=== PATIENT | female | born 1970 | race Caucasian/White ===

== ENCOUNTER 2018-11-11 15:07 | Inpatient (IN) ==
[2018-11-11] MEDS ORDERED: ALBUTEROL SULFATE/IPRATROPIUM 3 ML NEBU IH ONE ×2 (15:17→15:47)
[2018-11-11] MEDS ORDERED: METHYLPREDNISOLONE SOD SUCC/PF 125 MG/2 ML VIAL IV ONE (15:31)
--- NOTE | 2018-11-11 15:35 | ERNOTE ---
Dyspnea - General Presenting Symptoms: difficulty of breathing, wheezing Time Seen by Provider: 11/11/18 15:15 Source: patient Exam Limitations: no limitations - Immun/Allergies/Home Medications Allergies/Adverse Reactions: Allergies latex Allergy (Verified 11/11/18 16:01) RASH aspirin Adverse Reaction (Verified 11/11/18 16:01) Swelling of Face nausea fentanyl Adverse Reaction (Verified 11/11/18 16:01) Swelling of Tongue vomiting Home Medications: HOME MEDICATIONS amoxicillin 875 mg-potassium clavulanate 125 mg tablet 1 tab PO BID 7 Days #14 tab 11/09/18 [Last Taken Unknown] benzonatate 100 mg capsule 100 mg PO TID 10 Days #30 cap 11/09/18 [Last Taken Unknown] fluticasone propionate 50 mcg/actuation nasal spray,suspension 2 spray JUSTIN DAILY 10 Days #9.9 g 11/09/18 [Last Taken Unknown] - History of Present Illness Narrative: Patient is currently being treated for sinus infection and is on Augmentin and Tessalon Perles. However approximately 1 to 2 hours ago she got significantly short of breath with wheezing and a cough. She rates his symptoms as at least moderate to severe in severity. Severity: moderate, severe Treatment CARDIO CLINICIAN: none Initiating event: Reports: other - sinusitis Frequency of episodes: Reports: occassional episodes Modifying Factors - (Improves): Reports: nothing Modifying Factors (Worsens): Reports: other - smoking Associated Symptoms-Dyspnea: Reports: cough, wheezing Prior Treatment: Reports: recently seen, treated by physician, currently on antibiotics Review of Systems - Review of Systems Constitutional: Present: See HPI EYE: Present: no symptoms reported ENT: Present: no symptoms reported Respiratory: Present: See HPI Cardiology: Present: no symptoms reported Gastrointestinal/Abdominal: Present: no symptoms reported Genitourinary: Present: no symptoms reported Musculoskeletal: Present: no symptoms reported Skin: Present: no symptoms reported Neurological: Present: no symptoms reported Endocrine: Present: no symptoms reported Hematologic/Lymphatic: Present: no symptoms reported Psych: Present: no symptoms reported Medical History (Updated 11/09/18 @ 15:38 by Lida Cano CMA) Sinusitis Onset Date: Unknown Anxiety Onset Date: Unknown Depression Onset Date: Unknown Environmental allergies Onset Date: Unknown Surgical History: Surgical History (Updated 11/09/18 @ 15:40 by Lida Cano CMA) H/O: hysterectomy Onset Date: Unknown History of breast surgery Onset Date: Unknown History of tubal ligation Onset Date: Unknown Previous section Onset Date: Unknown Family History: Family History (Updated 11/09/18 @ 15:40 by Lida Cano CMA) Other No pertinent family history Social History: (Last Reviewed 11/11/18 @ 16:01 by Giana Bell RN) Social History: usp: No Marital status: Single current occupational status: unemployed Highest education level completed: high school graduate Service: No Tobacco: Smoking Status: Current every day smoker Alcohol: alcohol intake: current alcohol intake frequency: a few times a month Substance Use: substance use type: does not use Dietary Habits: caffeine: Yes Physical Exam - Physical Exam General Appearance: Present: wd/wn, alert, moderate distress Head Exam: Present: normal inspection, no evidence of injury Eye Exam: Normal inspection: bilateral, PERRL: bilateral Ears, Nose, Throat: Present: normal ENT inspection, H, normal pharynx Neck: Present: normal inspection, nontender Respiratory: Present: no accessory muscle use, chest nontender, wheezing, other - Coarse breath sounds heard throughout Cardiovascular/Chest: Present: regular rate, rhythm, no murmur, normal peripheral pulses Gastrointestinal/Abdominal: Present: normal bowel sounds, nontender, nondis tended, soft, no organomegaly Rectal Exam: Present: deferred Back Exam: Present: normal inspection, normal range of motion Extremity Exam: Present: normal inspection, non-tender, no edema, normal range of motion Neurological Exam: Present: alert, oriented, normal mood/affect Skin Exam: Present: normal color, warm/dry Lymphatic Exam: Present: no adenopathy Progress - Results and Orders Patient's Lab Results:: I have reviewed the patient's lab results. - Vital Signs Patient's Vital Signs:: I have reviewed the patient's vital signs. Vital Signs: Vital Signs 11/11/18 15:08 Temperature 36.3 C Pulse Rate 95 Respiratory Rate 32 H Blood Pressure 90/69 O2 Sat by Pulse Oximetry 96 - X-Ray X-Ray #1 X-Ray: chest Interpretation: Reviewed by me - Progress/Reassessment Chief Complaint: Dyspnea Plan - Plan Plan: Patient will need to be admitted for stabilization of the blood pressure, 2 sep arate antibiotics to treat what is likely interstitial pneumonia with acute bronchospasm. Patient is worrisome for evolving sepsis so I believe aggressive treatment is mandated here. Departure Clinical Impression: Interstitial pneumonia Hypotension Qualifiers: Hypotension type: other hypotension type Qualified Code(s): I95.89 - Other hypotension Sepsis Qualifiers: Sepsis type: sepsis due to unspecified organism Sepsis acute organ dysfunction status: without acute organ dysfunction Qualified Code(s): A41.9 - Sepsis, unspecified organism - Departure Disposition: Still a patient Condition: Critical Critical Care Note - Critical Care Note Total Time (mins): 50 Comments: Patient is very worrisome for an evolving sepsis. In light of the elevated lactate and a hypotensive episode that required a liter fluid to stabilize, patient will be admitted. He required 1 L fluid to stabilize the blood pressure from 70/40 to 100/60. Patient will be started on 2 separate antibiotics, Rocephin and Zithromax as I suspect this is all coming from interstitial pneumonia.
[2018-11-11 15:42] LABS: Hematocrit 43.2 % (37.0-47.0); Mean Cell Volume 91.5 fl (78-100); Mean Corpuscular Hemoglobin 31.8 pg (27-31); Mean Corpuscular Hgb Conc 34.7 g/dl (32-36); Mean Platelet Volume 9.8 fl (8-12.5); Neutrophil # 3.9 K/mm3 (1.3-6.0); Neutrophil % 61.9 % (42-75.0); Platelet Count 364 K/mm3 (150-450); Red Blood Count 4.72 M/mm3 (4.2-5.4); Red Cell Distribution Width 13.4 % (11.5-14.0); White Blood Count 6.3 K/mm3 (4.0-10.5)
[2018-11-11] MEDS ORDERED: NORMAL SALINE 1,000 ML IV ONE ×3 (15:45→16:52)
[2018-11-11 15:55] LABS: Albumin * 4.2 gm/dl (3.4-5.0); Anion Gap 20.4 mmol/L (6.8-13.8); BUN/Creatinine Ratio 6.9 (9.0-21.6); Bilirubin, Total 0.5 mg/dL (0.0-1.1); Ca. Corrected For Albumin 9.2 mg/dL (8.4-10.2); Calcium * 9.7 mg/dL (7.9-10.9); Carbon Dioxide 19.3 mmol/L (24-32.6); Potassium 3.7 mmol/L (3.4-4.6); Total Protein 7.9 gm/dL (6.2-8.2)
[2018-11-11 16:10] LABS: Troponin I Less than 0.017 ng/mL (0.00-0.10)
[2018-11-11] MEDS ORDERED: ALBUTEROL SULFATE 2.5 MG/0.5 ML VIAL.NEB IH ONE (16:11)
[2018-11-11 16:14] LABS: BNP * 79 pg/mL (5-150)
[2018-11-11] MEDS ORDERED: cefTRIAXone SODIUM 1,000 MG/100 ML BAG IV ONE (16:52)
[2018-11-11] MEDS ORDERED: AZITHROMYCIN 500 MG in DEXTROSE 5 % IN WATER 250 ML IV ONE ×2 (17:15)
--- NOTE | 2018-11-11 20:23 | HP ---
Chief Complaint - Chief Complaint Date of Service: 11/11/18 Time of Service: 18:30 Chief Complaint: cough, dyspnea, mild hypoxiemia. History of Present Illness: Justyna Maravilla is a 48-year-old female who presented to the emergency room because of shortness of breath and coughing. She has been afebrile and the cough is been minimally productive. She is a long-term smoker and smokes about 1 pack/day. Onset of her illness was 2 days ago. She was seen in the walk-in clinic and started on Augmentin. The ER chest x-ray suggests an interstitial atypical pneumonia. The CBC is a normal white count. The lactic acid is elevated at 3.4. I was notified of that by phone this afternoon. She is getting IV normal saline at 125 cc/h. She had 2 L bolus in the emergency room. She is on Rocephin and azithromycin for antibiotics. She is admitted to regular hospital stay from the emergency room. Medical History (Updated 11/11/18 @ 17:04 by Taiwo Cash DO) Sinusitis Onset Date: Unknown Anxiety Onset Date: Unknown Depression Onset Date: Unknown Environmental allergies Onset Date: Unknown Surgical History: Surgical History (Updated 11/09/18 @ 15:40 by Lida Cano CMA) H/O: hysterectomy Onset Date: Unknown History of breast surgery Onset Date: Unknown History of tubal ligation Onset Date: Unknown Previous section Onset Date: Unknown Family History: Family History (Updated 11/09/18 @ 15:40 by Lida Cano CMA) Other No pertinent family history Social History: (Last Updated 11/11/18 @ 17:33 by Lisa Castro RN) Social History: detention: No Marital status: Single current occupational status: unemployed Highest education level completed: high school graduate Service: No Tobacco: Smoking Status: Current every day smoker Smoking cigarettes per day: 20 Smoking packs per day: 1 quit status: considering quitting Alcohol: alcohol intake: current alcohol intake frequency: a few times a month Substance Use: substance use type: does not use Dietary Habits: caffeine: Yes Review Of Systems (GEN) - Review of Systems Generalized/Overall Review: Present: Weakness, Malaise, Fatigue. Absent: Chills, Fever EENTM: Present: No Symptoms Reported Respiratory: Present: Cough, Shortness of Breath. Absent: Wheezing Cardiac: Present: No Symptoms Reported Abdominal: Present: No Symptoms Reported Genitourinary: Present: No Symptoms Reported Musculoskeletal: Present: No Symptoms Reported Neurological: Present: No Symptoms Reported Skin: Present: No Symptoms Reported Endocrine: Present: No Symptoms Reported Misc: All systems neg except as marked Allergies/Adverse Reactions: Allergies Allergy/AdvReac Type Severity Reaction Status Date / Time latex Allergy RASH Verified 11/11/18 17:33 aspirin AdvReac Swelling Verified 11/11/18 17:33 of Face fentanyl AdvReac Swelling Verified 11/11/18 17:33 of Tongue Home Medications: HOME MEDICATIONS amoxicillin 875 mg-potassium clavulanate 125 mg tablet 1 tab PO BID 7 Days #14 tab 11/09/18 [Last Taken Unknown] benzonatate 100 mg capsule 100 mg PO TID 10 Days #30 cap 11/09/18 [Last Taken Unknown] fluticasone propionate 50 mcg/actuation nasal spray,suspension 2 spray JUSTIN DAILY 10 Days #9.9 g 11/09/18 [Last Taken Unknown] Exam - Exam Vital Signs: Vital Signs - Last Taken Temp 36.4 C 11/11/18 17:35 Pulse 63 11/11/18 17:38 Resp 22 H 11/11/18 17:35 BP 105/65 11/11/18 17:35 Pulse Ox 95 11/11/18 17:35 Constitutional: Present: Alert, Oriented x3, Cooperative, Well developed, Well nourished, Mild distress, Middle aged ENT Exam: Present: normal ENT inspection, hearing grossly normal, pharynx normal Eye Exam: bilateral eye: normal inspection, PERRL, EOMI Neck: Present: non-tender, full range of motion, supple, normal inspection, trachea midline Back Exam: Present: normal inspection, no CVA tenderness, no vertebral tenderness Breasts: Present: Exam deferred Respiratory: Present: chest non-tender, no accessory muscle use, decreased breath sounds, accessory muscle use, rhonchi, expiration (prolonged) Cardiovascular/Chest: Present: normal peripheral pulses, regular rate, rhythm, no chest tenderness, no edema, no gallop, no JVD, no murmur, no rub, JVD Peripheral Pulses: carotid (R): 2+, carotid (L): 2+, radial (R): 2+, radial (L): 2+ Abdomen: Present: Normal bowel sounds, soft, nontender, nondistended, no rebound tenderness, no hepatospenomegaly, no masses /Rectal: Present: Exam deferred Extremity: Present: normal range of motion, non-tender, normal inspection, no pedal edema, no calf tenderness, normal capillary refill Skin Exam: Present: normal color - While on oxygen, warm/dry, no cyanosis Lymphatic: Present: no adenopathy Neurologic: Present: lab technician II-XII nml as tested, no motor/sensory deficits, alert, normal mood/affect, oriented x 3 Eye contact: Present: cooperative, good eye contact, normal speech Thoughts: Present: normal thought pattern, no apparent hallucination Diagnostic Studies: Abnormal Lab Results 11/11/18 11/11/18 11/11/18 Range/Units 15:35 15:35 15:35 MCH 31.8 H (27-31) pg Carbon Dioxide 19.3 L (24-32.6) mmol/L Anion Gap 20.4 H (6.8-13.8) mmol/L BUN/Creatinine Ratio 6.9 L (9.0-21.6) Lactic Acid, Venous (0.4-2.0) mmol/L ALT 15 L (19-67) U/L Procalcitonin Less than 0.05 L (0.05-0.50) ng/mL 11/11/18 11/11/18 Range/Units 15:35 18:50 MCH (27-31) pg Carbon Dioxide (24-32.6) mmol/L Anion Gap (6.8-13.8) mmol/L BUN/Creatinine Ratio (9.0-21.6) Lactic Acid, Venous 3.8 H* 3.7 H* (0.4-2.0) mmol/L ALT (19-67) U/L Procalcitonin (0.05-0.50) ng/mL Laboratory Results WBC 6.3 K/mm3 (4.0-10.5) 11/11/18 15:35 RBC 4.72 M/mm3 (4.2-5.4) 11/11/18 15:35 Hgb 15.0 gm/dL (12.5-16.0) 11/11/18 15:35 Hct 43.2 % (37.0-47.0) 11/11/18 15:35 MCV 91.5 fl (78-100) 11/11/18 15:35 MCH 31.8 pg (27-31) H 11/11/18 15:35 MCHC 34.7 g/dl (32-36) 11/11/18 15:35 RDW 13.4 % (11.5-14.0) 11/11/18 15:35 Plt Count 364 K/mm3 (150-450) 11/11/18 15:35 MPV 9.8 fl (8-12.5) 11/11/18 15:35 Immature Gran % (Auto) 0.30 % (0.001-0.429) 11/11/18 15:35 Immature Gran # (Auto) 0.02 K/mm3 (0.000-0.0310) 11/11/18 15:35 61.9 % (42-75.0) 11/11/18 15:35 27.8 % (20-51) 11/11/18 15:35 8.5 % (0.0-9) 11/11/18 15:35 1.0 % (0.0-3.0) 11/11/18 15:35 0.5 % (0.0-1.0) 11/11/18 15:35 Nucleated RBC % 0.0 k/mm3 (0-1) 11/11/18 15:35 3.9 K/mm3 (1.3-6.0) 11/11/18 15:35 1.74 k/mm3 (1.5-3.5) 11/11/18 15:35 0.5 k/mm3 (0.0-1.0) 11/11/18 15:35 0.1 k/mm3 (0.0-0.7) 11/11/18 15:35 Absolute Basophils 0.0 k/mm3 (0.0-0.1) 11/11/18 15:35 Sodium 140 mmol/L (132-142) 11/11/18 15:35 140 mmol/L (130-142) 11/11/18 15:35 Potassium 3.7 mmol/L (3.4-4.6) 11/11/18 15:35 Chloride 104 mmol/L (97-106) 11/11/18 15:35 Carbon Dioxide 19.3 mmol/L (24-32.6) L 11/11/18 15:35 20.4 mmol/L (6.8-13.8) H 11/11/18 15:35 BUN 7 mg/dL (3-23) 11/11/18 15:35 1.02 mg/dL (0.4-1.4) 11/11/18 15:35 Est GFR (Non-Af Amer) 61 mL/min (60-130) 11/11/18 15:35 6.9 (9.0-21.6) L 11/11/18 15:35 90 mg/dL (70-110) 11/11/18 15:35 3.7 mmol/L (0.4-2.0) H* 11/11/18 18:50 Calcium 9.7 mg/dL (7.9-10.9) 11/11/18 15:35 Calcium Adj for Albumin 9.2 mg/dL (8.4-10.2) 11/11/18 15:35 Magnesium 2.0 mg/dL (1.2-2.8) 11/11/18 15:35 0.5 mg/dL (0.0-1.1) 11/11/18 15:35 AST 20 U/L (0-48) 11/11/18 15:35 ALT 15 U/L (19-67) L 11/11/18 15:35 91 U/L (50-170) 11/11/18 15:35 Less than 0.017 ng/mL (0.00-0.10) 11/11/18 15:35 B-Natriuretic Peptide 79 pg/mL (5-150) 11/11/18 15:35 7.9 gm/dL (6.2-8.2) 11/11/18 15:35 4.2 gm/dl (3.4-5.0) 11/11/18 15:35 Less than 0.05 ng/mL (0.05-0.50) L 11/11/18 15:35 Mycoplasma pneumon IgM Non reactive (NonReactive) 11/11/18 15:35 Assessment/Plan - Narrative Narrative: 1. Repeat labs with CBC and lactic acid and CMP in the morning 2. Repeat chest x-ray in the morning as she is better hydrated 3. Add nicotine patch 21 mcg/h 4. Continue with current antibiotics - Assessment/Plan (1) Interstitial pneumonia Problem: Acute (2) Sepsis Problem: Acute Qualifiers: Sepsis type: sepsis due to unspecified organism Sepsis acute organ dysfunction status: without acute organ dysfunction Qualified Code(s): A41.9 - Sepsis, unspecified organism (3) Chronic bronchitis with acute exacerbation Problem: Acute (4) Hypotension Problem: Acute Qualifiers: Hypotension type: other hypotension type Qualified Code(s): I95.89 - Other hypotension (5) Current every day smoker Problem: Chronic
[2018-11-11] MEDS: BENZONATATE 100 MG CAPSULE PO SCH (21:41)
[2018-11-11] MEDS: NICOTINE 21 MG PATC TD SCH (21:41)
[2018-11-12] MEDS: ALBUTEROL SULFATE 2.5 MG/0.5 ML VIAL.NEB IH PRN ×5 (01:19→22:05)
[2018-11-12] MEDS: NORMAL SALINE 1,000 ML IV PRN ×2 (02:15→09:46)
[2018-11-12 05:51] LABS: Hematocrit 35.1 % (37.0-47.0); Hemoglobin 11.7 gm/dL (12.5-16.0); Mean Cell Volume 95.1 fl (78-100); Mean Corpuscular Hemoglobin 31.7 pg (27-31); Mean Corpuscular Hgb Conc 33.3 g/dl (32-36); Mean Platelet Volume 9.9 fl (8-12.5); Neutrophil # 10.1 K/mm3 (1.3-6.0); Neutrophil % 86.1 % (42-75.0); Platelet Count 295 K/mm3 (150-450); Red Blood Count 3.69 M/mm3 (4.2-5.4); Red Cell Distribution Width 13.6 % (11.5-14.0); White Blood Count 11.7 K/mm3 (4.0-10.5)
[2018-11-12 05:53] LABS: Albumin * 3.1 gm/dl (3.4-5.0); Anion Gap 13.9 mmol/L (6.8-13.8); BUN/Creatinine Ratio 11.4 (9.0-21.6); Bilirubin, Total 0.1 mg/dL (0.0-1.1); Ca. Corrected For Albumin 8.7 mg/dL (8.4-10.2); Calcium * 8.3 mg/dL (7.9-10.9); Potassium 3.9 mmol/L (3.4-4.6); Total Protein 6.1 gm/dL (6.2-8.2)
[2018-11-12] MEDS ORDERED: FLUTICASONE PROPIONATE 120 SPRAY INHALER NS SCH (09:00)
[2018-11-12] MEDS: BENZONATATE 100 MG CAPSULE PO SCH ×3 (09:08→17:22)
[2018-11-12] MEDS: AZITHROMYCIN 250 MG TABLET PO SCH (09:48)
[2018-11-12] MEDS: FLUTICASONE PROPION/SALMETEROL 14 PUFF DISK.W.DEV IH SCH ×2 (09:50→21:28)
[2018-11-12] MEDS: FLUTICASONE PROPIONATE 120 SPRAY INHALER NS SCH (09:52)
--- NOTE | 2018-11-12 11:54 | DS ---
(1) Bacterial lobar pneumonia Problem: Acute (2) Interstitial pneumonia Problem: Acute (3) Sepsis Problem: Acute Qualifiers: Sepsis type: sepsis due to unspecified organism Sepsis acute organ dysfunction status: without acute organ dysfunction Qualified Code(s): A41.9 - Sepsis, unspecified organism (4) Chronic bronchitis with acute exacerbation Problem: Acute (5) Hypotension Problem: Resolved Qualifiers: Hypotension type: other hypotension type Qualified Code(s): I95.89 - Other hypotension (6) Current every day smoker Problem: Chronic Description of Stay: Carroll Maravilla is a 48-year-old female presented to ER with shortness of breath and marked dyspnea on exertion with mild hypoxemia and hypotension. She has a cough. She had not been febrile. Her white count was normal on admission but has increased today to 11,900. The patient was started on Rocephin and azithromycin in the emergency room and that was continued here this morning. She has the appearance of an interstitial pneumonitis or atypical pneumonia on initial chest x-ray but after hydration and reimaging there is a faint left lower lobe pneumonia now. Lactic acid was initially elevated at 3.9 but is back to normal at 1.8 this morning. She still has a lot of dyspnea with minor exertion and just walking to the bathroom from her bed and back. She does not have a nebulizer at home and so she will have to have one after breathing treatments. I will start her on Symbicort as well. Procedures Performed: none Results and Findings: Lab Pending Results 11/11/18 15:35: WBC 6.3, RBC 4.72, Hgb 15.0, Hct 43.2, MCV 91.5, MCH 31.8 H, MCHC 34.7, RDW 13.4, Plt Count 364, MPV 9.8, Immature Gran % (Auto) 0.30, Immature Gran # (Auto) 0.02, Neutrophils % 61.9, Lymphocytes % 27.8, Monocytes % 8.5, Eosinophils % 1.0, Basophils % 0.5, Nucleated RBC % 0.0, Neutrophils # 3.9, Lymphocytes # 1.74, Monocytes # 0.5, Eosinophils # 0.1, Absolute Basophils 0.0 11/11/18 15:35: Sodium 140, Plasma Sodium 140, Potassium 3.7, Chloride 104, Carbon Dioxide 19.3 L, Anion Gap 20.4 H, BUN 7, Creatinine 1.02, Est GFR (Non-Af Amer) 61, BUN/Creatinine Ratio 6.9 L, Random Glucose 90, Calcium 9.7, Calcium Adj for Albumin 9.2, Magnesium 2.0, Total Bilirubin 0.5, AST 20, ALT 15 L, Alkaline Phosphatase 91, Total Protein 7.9, Albumin 4.2 11/11/18 15:35: Procalcitonin Less than 0.05 L 11/11/18 15:35: Lactic Acid, Venous 3.8 H* 11/11/18 15:35: Troponin I Less than 0.017, B-Natriuretic Peptide 79 11/11/18 15:35: Mycoplasma pneumon IgM Non reactive 11/11/18 18:50: Lactic Acid, Venous 3.7 H* 11/11/18 23:10: Lactic Acid, Venous 3.1 H* 11/12/18 05:35: WBC 11.7 H D, RBC 3.69 L, Hgb 11.7 L, Hct 35.1 L, MCV 95.1, MCH 31.7 H, MCHC 33.3, RDW 13.6, Plt Count 295, MPV 9.9, Immature Gran % (Auto) 0.30, Immature Gran # (Auto) 0.04 H, Neutrophils % 86.1 H, Lymphocytes % 7.2 L, Monocytes % 6.3, Eosinophils % 0.0, Basophils % 0.1, Nucleated RBC % 0.0, Neutrophils # 10.1 H, Lymphocytes # 0.84 L, Monocytes # 0.7, Eosinophils # 0.0, Absolute Basophils 0.0 11/12/18 05:35: Sodium 142, Plasma Sodium 142, Potassium 3.9, Chloride 109 H, Carbon Dioxide 23.0 L, Anion Gap 13.9 H, BUN 8, Creatinine 0.70, Est GFR (Non-Af Amer) 95 D, BUN/Creatinine Ratio 11.4, Random Glucose 117 H, Calcium 8.3, Calcium Adj for Albumin 8.7, Total Bilirubin 0.1, AST 13, ALT 9 L, Alkaline Phosphatase 75, Total Protein 6.1 L, Albumin 3.1 L 11/12/18 05:35: Lactic Acid, Venous 1.8 Discharge Location: Home Disposition: Home self-care Condition: Critical Discharge Activity: Activity as tolerated, Other - Off work for 2 weeks Discharge Diet: General/regular food Additional Patient Instructions (free text): RT treatments 4 times daily with nebulizer. Finish antibiotic therapy Add Mucinex 600 mg twice daily See me in the office in 2 weeks. Provide note to be off work for the next 2 weeks Complete Home Medications List: Complete Home Medication List: benzonatate 100 mg capsule 100 mg PO TID 10 Days #30 cap 11/09/18 fluticasone propionate 50 mcg/actuation nasal spray,suspension 2 spray JUSTIN DAILY 10 Days #9.9 g 11/09/18 Albuterol Sulfate [Albuterol Sulfate 2.5 MG/0.5ML] 2.5 mg INHALATION QID #60 vial.neb 11/12/18 Azithromycin [Zithromax] 250 mg PO DAILY #3 tab 11/12/18 Cefuroxime Axetil [Ceftin] 250 mg PO Q12H #20 tab 11/12/18 Nicotine [Nicoderm] 21 mg TD Q24H #30 patch.td24 11/12/18 guaiFENesin [Guaifenesin ER] 600 mg PO BID #30 tab.er.12h 11/12/18
--- NOTE | 2018-11-12 13:32 | PN ---
Subjective - Date and Time Seen Date: 11/12/18 Time: 10:00 Subjective Narrative: Justyna Galeano is still laboring to breathe and has audible wheezing when she is walking. When at rest and in bed she is not wheezing. She gets very dyspneic just walking to and from the bathroom even though her oxygen saturation is staying in the high 90s. She has a pleural friction rub on the left lateral chest. Other than her dyspnea with minor exertion she is doing very well. She is been afebrile today. Repeat chest x-ray after hydration now shows a small left lower lobe pneumonia and is probably responsible for the friction rub that I hear. Her white count has risen to 11,900. There is no bandemia. She continues to be on Rocephin and azithromycin. I will continue her in acute care for the next 24 to 48 hours with breathing treatments and IV antibiotics. I will hand her off to Dr. Unger to care for through the weekend. I told her she will probably need to be off work for the next 2 weeks so she can notify her employer. 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 Objective - Review of Systems Generalized/Overall Review: Reports: Weakness, Malaise EENTM: Reports: No Symptoms Reported Respiratory: Reports: Cough, Shortness of Breath, Wheezing, Other - Marked dyspnea on exertion Cardiac: Reports: No Symptoms Reported Abdominal: Reports: No Symptoms Reported Genitourinary Symptoms: Reports: No Symptoms Reported Musculoskeletal Complaints: Reports: No Symptoms Reported Neurological: Reports: No Symptoms Reported Skin: Reports: No Symptoms Reported Endocrine: Reports: No Symptoms Reported Misc: All systems neg except as marked - Vitals Vitals: Last Vital Signs Temp 36.7 C 11/12/18 09:57 Pulse 76 11/12/18 10:00 Resp 24 H 11/12/18 09:57 BP 97/49 11/12/18 09:57 Pulse Ox 95 11/12/18 09:57 - Abnormal Lab Findings Abnormal Lab Findings: Abnormal Lab Results 11/11/18 11/11/18 11/11/18 Range/Units 15:35 15:35 15:35 WBC (4.0-10.5) K/mm3 RBC (4.2-5.4) M/mm3 Hgb (12.5-16.0) gm/dL Hct (37.0-47.0) % MCH 31.8 H (27-31) pg Immature Gran # (Auto) (0.000-0.0310) K/mm3 Neutrophils % (42-75.0) % Lymphocytes % (20-51) % Neutrophils # (1.3-6.0) K/mm3 Lymphocytes # (1.5-3.5) k/mm3 Chloride (97-106) mmol/L Carbon Dioxide 19.3 L (24-32.6) mmol/L Anion Gap 20.4 H (6.8-13.8) mmol/L BUN/Creatinine Ratio 6.9 L (9.0-21.6) Random Glucose (70-110) mg/dL Lactic Acid, Venous (0.4-2.0) mmol/L ALT 15 L (19-67) U/L Total Protein (6.2-8.2) gm/dL Albumin (3.4-5.0) gm/dl Procalcitonin Less than 0.05 L (0.05-0.50) ng/mL 11/11/18 11/11/18 11/11/18 Range/Units 15:35 18:50 23:10 WBC (4.0-10.5) K/mm3 RBC (4.2-5.4) M/mm3 Hgb (12.5-16.0) gm/dL Hct (37.0-47.0) % MCH (27-31) pg Immature Gran # (Auto) (0.000-0.0310) K/mm3 Neutrophils % (42-75.0) % Lymphocytes % (20-51) % Neutrophils # (1.3-6.0) K/mm3 Lymphocytes # (1.5-3.5) k/mm3 Chloride (97-106) mmol/L Carbon Dioxide (24-32.6) mmol/L Anion Gap (6.8-13.8) mmol/L BUN/Creatinine Ratio (9.0-21.6) Random Glucose (70-110) mg/dL Lactic Acid, Venous 3.8 H* 3.7 H* 3.1 H* (0.4-2.0) mmol/L ALT (19-67) U/L Total Protein (6.2-8.2) gm/dL Albumin (3.4-5.0) gm/dl Procalcitonin (0.05-0.50) ng/mL 11/12/18 11/12/18 Range/Units 05:35 05:35 WBC 11.7 H D (4.0-10.5) K/mm3 RBC 3.69 L (4.2-5.4) M/mm3 Hgb 11.7 L (12.5-16.0) gm/dL Hct 35.1 L (37.0-47.0) % MCH 31.7 H (27-31) pg Immature Gran # (Auto) 0.04 H (0.000-0.0310) K/mm3 Neutrophils % 86.1 H (42-75.0) % Lymphocytes % 7.2 L (20-51) % Neutrophils # 10.1 H (1.3-6.0) K/mm3 Lymphocytes # 0.84 L (1.5-3.5) k/mm3 Chloride 109 H (97-106) mmol/L Carbon Dioxide 23.0 L (24-32.6) mmol/L Anion Gap 13.9 H (6.8-13.8) mmol/L BUN/Creatinine Ratio (9.0-21.6) Random Glucose 117 H (70-110) mg/dL Lactic Acid, Venous (0.4-2.0) mmol/L ALT 9 L (19-67) U/L Total Protein 6.1 L (6.2-8.2) gm/dL Albumin 3.1 L (3.4-5.0) gm/dl Procalcitonin (0.05-0.50) ng/mL - EKG/Xray Findings EKG read: Interp. by me Interpretation: Reviewed by me - Exam Constitutional: Present: Alert, Oriented x3, Cooperative, Well developed, Well nourished, No distress ENT Exam: Present: normal ENT inspection, hearing grossly normal, pharynx normal, TMs normal Neck: Present: non-tender, full range of motion, supple Breasts: Present: Exam deferred Respiratory: Present: chest non-tender, respiratory distress, decreased breath sounds, accessory muscle use, wheezing, expiration (prolonged), plerual rub Cardiovascular/Chest: Present: normal peripheral pulses, regular rate, rhythm, no chest tenderness, no edema, no JVD, no murmur, no rub Abdomen: Present: Normal bowel sounds, soft, nontender, nondistended, no rebound tenderness, no hepatospenomegaly, no masses /Rectal: Present: Exam deferred, External genitalia normal Extremity: Present: normal range of motion, non-tender, normal inspection, no pedal edema, no calf tenderness, normal capillary refill Skin Exam: Present: normal color, warm/dry Lymphatic: Present: no adenopathy Neurologic: Present: sole filler II-XII nml as tested, no motor/sensory deficits, alert, normal mood/affect, oriented x 3 Appearance: Present: appropriate appearance, appropriate insight, neat, no memory impairment Eye contact: Present: cooperative, good eye contact, normal speech Thoughts: Present: normal thought pattern, no apparent hallucination Assessment/Plan Plan Narrative: 1. Continue IV Rocephin 2. Continue p.o. azithromycin 3. Continue RT treatments 4 times daily and every 4 hours as needed 4. Progress activity as breathing allows 5. Add Mucinex 600 mg twice daily 6. Transfer care to Dr. Unger for the weekend. - Problems/Diagnosis (1) Bacterial lobar pneumonia Problem: Acute (2) Interstitial pneumonia Problem: Acute (3) Sepsis Problem: Resolved Qualifiers: Sepsis type: sepsis due to unspecified organism Sepsis acute organ dysfunction status: without acute organ dysfunction Qualified Code(s): A41.9 - Sepsis, unspecified organism (4) Chronic bronchitis with acute exacerbation Problem: Acute (5) COPD with asthma Problem: Acute (6) Hypotension Problem: Resolved Qualifiers: Hypotension type: other hypotension type Qualified Code(s): I95.89 - Other hypotension (7) Current every day smoker Problem: Chronic
[2018-11-12] MEDS: NICOTINE 21 MG PATC TD SCH (21:30)
[2018-11-13] MEDS: ALBUTEROL SULFATE 2.5 MG/0.5 ML VIAL.NEB IH PRN ×2 (02:08→06:02)
[2018-11-13] MEDS: FLUTICASONE PROPIONATE 120 SPRAY INHALER NS SCH (09:28)
[2018-11-13] MEDS: FLUTICASONE PROPION/SALMETEROL 14 PUFF DISK.W.DEV IH SCH (09:28)
[2018-11-13] MEDS: AZITHROMYCIN 250 MG TABLET PO SCH (09:29)
[2018-11-13] MEDS: BENZONATATE 100 MG CAPSULE PO SCH (09:29)
--- NOTE | 2018-11-13 12:17 | DS ---
(1) Sepsis Problem: Resolved Qualifiers: Sepsis type: sepsis due to unspecified organism Sepsis acute organ dysfunction status: without acute organ dysfunction Qualified Code(s): A41.9 - Sepsis, unspecified organism (2) Interstitial pneumonia Problem: Resolved (3) COPD with asthma Problem: Chronic (4) Chronic bronchitis Problem: Chronic Description of Stay: Justyna is a 48 yo female that was admitted with Sepsis, COPD exacerbation, and interstitial pneumonia on top of underlying chronic bronchit is. She was treated with IV fluids, Rocephin, Azithromycin, and QID nebulizer treatments. Her lactic acid was initially elevated but with treatment returned to normal. She gradually improved clinically, there was no hypoxia, but significant shortness of breath with activity that has now improved. She will be discharged to home on cefuroxime, azithromycin, and nebulizers. She has chronic bronchitis and requires a home nebulizer for daily use. Procedures Performed: none Results and Findings: Pending Mircobiology Results 11/11/18 16:10 Blood Blood Culture - Preliminary NO GROWTH 24 HOURS 11/11/18 15:35 Blood Blood Culture - Preliminary NO GROWTH 24 HOURS Lab Pending Results 11/11/18 15:35: WBC 6.3, RBC 4.72, Hgb 15.0, Hct 43.2, MCV 91.5, MCH 31.8 H, MCHC 34.7, RDW 13.4, Plt Count 364, MPV 9.8, Immature Gran % (Auto) 0.30, Immature Gran # (Auto) 0.02, Neutrophils % 61.9, Lymphocytes % 27.8, Monocytes % 8.5, Eosinophils % 1.0, Basophils % 0.5, Nucleated RBC % 0.0, Neutrophils # 3.9, Lymphocytes # 1.74, Monocytes # 0.5, Eosinophils # 0.1, Absolute Basophils 0.0 11/11/18 15:35: Sodium 140, Plasma Sodium 140, Potassium 3.7, Chloride 104, Carbon Dioxide 19.3 L, Anion Gap 20.4 H, BUN 7, Creatinine 1.02, Est GFR (Non-Af Amer) 61, BUN/Creatinine Ratio 6.9 L, Random Glucose 90, Calcium 9.7, Calcium Adj for Albumin 9.2, Magnesium 2.0, Total Bilirubin 0.5, AST 20, ALT 15 L, Alkaline Phosphatase 91, Total Protein 7.9, Albumin 4.2 08/01/19 15:35: Procalcitonin Less than 0.05 L 11/11/18 15:35: Lactic Acid, Venous 3.8 H* 11/11/18 15:35: Troponin I Less than 0.017, B-Natriuretic Peptide 79 11/11/18 15:35: Mycoplasma pneumon IgM Non reactive 11/11/18 18:50: Lactic Acid, Venous 3.7 H* 11/11/18 23:10: Lactic Acid, Venous 3.1 H* 11/12/18 05:35: WBC 11.7 H D, RBC 3.69 L, Hgb 11.7 L, Hct 35.1 L, MCV 95.1, MCH 31.7 H, MCHC 33.3, RDW 13.6, Plt Count 295, MPV 9.9, Immature Gran % (Auto) 0.30, Immature Gran # (Auto) 0.04 H, Neutrophils % 86.1 H, Lymphocytes % 7.2 L, Monocytes % 6.3, Eosinophils % 0.0, Basophils % 0.1, Nucleated RBC % 0.0, Neutrophils # 10.1 H, Lymphocytes # 0.84 L, Monocytes # 0.7, Eosinophils # 0.0, Absolute Basophils 0.0 11/12/18 05:35: Sodium 142, Plasma Sodium 142, Potassium 3.9, Chloride 109 H, Carbon Dioxide 23.0 L, Anion Gap 13.9 H, BUN 8, Creatinine 0.70, Est GFR (Non-Af Amer) 95 D, BUN/Creatinine Ratio 11.4, Random Glucose 117 H, Calcium 8.3, Calcium Adj for Albumin 8.7, Total Bilirubin 0.1, AST 13, ALT 9 L, Alkaline Phosphatase 75, Total Protein 6.1 L, Albumin 3.1 L 11/12/18 05:35: Lactic Acid, Venous 1.8 Discharge Location: Home Disposition: Home self-care Condition: Good Discharge Activity: Activity as tolerated Discharge Diet: General/regular food Referrals: James Santana DO [Staff Physician] - Two Weeks Problem Oriented Discharge Instructions to Patient/Family: Chronic Bronchitis, Community-Acquired Pneumonia, Adult, [id number], Sepsis, Adult Additional Patient Instructions (free text): RT treatments 4 times daily with nebulizer. Finish antibiotic therapy Add Mucinex 600 mg twice daily Provide note to be off work for the next 2 weeks Prescriptions (Any new or edited meds): Albuterol Sulfate [Albuterol Sulfate 2.5 MG/0.5ML] 2.5 mg INHALATION QID #60 vial.neb Cefuroxime Axetil [Ceftin] 250 mg PO Q12H #20 tab guaiFENesin [Guaifenesin ER] 600 mg PO BID #30 tab.er.12h Nicotine [Nicoderm] 21 mg TD Q24H #30 patch.td24 Azithromycin [Zithromax] 250 mg PO DAILY #3 tab Complete Home Medications List: Complete Home Medication List: benzonatate 100 mg capsule 100 mg PO TID 10 Days #30 cap 11/09/18 fluticasone propionate 50 mcg/actuation nasal spray,suspension 2 spray JUSTIN DAILY 10 Days #9.9 g 11/09/18 Albuterol Sulfate [Albuterol Sulfate 2.5 MG/0.5ML] 2.5 mg INHALATION QID #60 vial.neb 11/12/18 Azithromycin [Zithromax] 250 mg PO DAILY #3 tab 11/12/18 Cefuroxime Axetil [Ceftin] 250 mg PO Q12H #20 tab 11/12/18 Nicotine [Nicoderm] 21 mg TD Q24H #30 patch.td24 11/12/18 guaiFENesin [Guaifenesin ER] 600 mg PO BID #30 tab.er.12h 11/12/18
[2018-11-13 13:49] VITALS: BP 104/55
== END 2018-11-13 13:40 | disposition home or self-care (01) | DRG 871 ==
LOC: ER 15:07 → MS 17:04
PROVIDERS: ADMIT Family Medicine; ATTEND Family Medicine
CPT/HCPCS: 36415; 71010; 71020; 71045; 71046; 80053; 83519; 83605; 83735; 83880; 84145; 84484; 85025; 86738; 87040; 93005; 94640; 94664; 94760; 96361; 96365; 96375; 99291